=== PATIENT | female | born 1980 | race Caucasian/White ===

== ENCOUNTER 2021-12-05 15:12 | Outpatient (CLI) | payer BC, SELFPAY ==
--- NOTE | ~2021-12-05 | XR_ITS ---
XR_CERV2-3V_CR DATE: 12/05/2021 15:26 INDICATION: Cervical radiculopathy TECHNIQUE: AP, open-mouth, lateral views COMPARISON: None FINDINGS: There is minimal dextroscoliosis of the cervical and upper thoracic spine. There is reversal of cervical curvature which may be due to muscle spasm. The C7-T1 area is optimally evaluated on the lateral view due to superimposed shoulders. More penetra ralf lateral view or swimmer's view is recommended for completeness. There is mild loss of interspace height at C4-5 and C5-6. C1 and C2 are normally aligned and the odontoid process is intact. No fracture or dislocation, locked facet or prevertebral soft tissue swelling. IMPRESSION: Recommend more penetrated lateral view and or swimmer's view for more optimal demonstrati on of C7 Reversal of cervical curvature and minimal dextroscoliosis Mild loss of interspace height at C4-5 and C5-6 Reviewed, dictated and finalized at [facility]. Reviewed, dictated and finalized at location [facility]. IMPRESSION: Recommend more penetrated lateral view and or swimmer's view for mo re optimal demonstration of C7 Reversal of cervical curvature and minimal dextroscoliosis Mild loss of interspace height at C4-5 and C5-6
== END 2021-12-05 15:13 | disposition home or self-care (01) ==
LOC: ANHIMG 15:13
PROVIDERS: PCP Internal Medicine; Visit Provider Nurse Practitioner
DX: M54.12 Radiculopathy, cervical region (principal)
CPT/HCPCS: 72040

== ENCOUNTER 2021-12-06 15:50 | Outpatient (CLI) | payer BC, SELFPAY ==
--- NOTE | ~2021-12-06 | XR_ITS ---
EXAM: XR cervical spine min 6V DATE: 12/06/2021 16:17 HISTORY: M54.12 - Radiculopathy, cervical region . COMPARISON: None available. FINDINGS: Craniocervical association and atlantoaxial joint are normal. No prevertebral soft tissue swelling. Trace anterolisthesis of C2 on 3. 2 mm anterolisthesis of C3 on 4. Mild focal kyphosis cent ered at C4-5. In flexion there is a 4 mm anterolisthesis of C3 on 4, and a 3 mm anterolisthesis of C4 on 5. All listheses reduce in extension. Suboptimal right oblique views. No severe left neural myla inal narrowing or uncovertebral joint hypertrophy. Mild disc space narrowing at C4-5 and C5-6. IMPRESSION: Grade 1 dynamic listheses at C2-3, C3-4, and C4-5. Mild degenerative disc disease in the mid cervical spine. Suboptimal visualization of the right uncovertebral joints and neural foramen. Reviewed, dictated and finalized at [facility]. IMPRESSION: Grade 1 dynamic listheses at C2-3, C3-4, and C4-5. Mild degenerativ e disc disease in the mid cervical spine. Suboptimal visualization of the right uncovertebral joints and neural foramen.
== END 2021-12-06 15:51 | disposition home or self-care (01) ==
PROVIDERS: PCP Internal Medicine; Visit Provider Nurse Practitioner
DX: M54.12 Radiculopathy, cervical region (principal); M50.30 Other cervical disc degeneration, unspecified cervical region
CPT/HCPCS: 72052

== ENCOUNTER 2022-08-08 11:38 | Outpatient (CLI) | payer BC, SELFPAY ==
--- NOTE | ~2022-08-08 | MMUS_ITS ---
EXAMINATION: MM diagnostic dana RT w manuela, US breast RT limited HISTORY: Abnormal 07/18/2022 outside right mammogram TECHNIQUE: Additional 3-D tomosynthesis images of right breast were performed and synthetic 2-D image s were generated. CAD analysis was submitted and interpreted. High resolution upper inner quadrant ri ght breast ultrasound was performed. COMPARISON: 07/18/2022 bilateral screening mammogram FINDINGS: MAMMOGRAPHIC FINDINGS: There is a circumscribed approximately 3.4 x 9 mm opacity in the upper inner quadrant of the right br east. No suspicious mass or architectural distortion, malignant calcification, skin thickening or retractio n is detected. ULTRASOUND: Right breast 2:00 5 cm from nipple: 4.7 x 4.6 x 5.7 mm sonolucency with through transmission posterio r enhancement, consistent with simple cyst 3:00 9 cm from nipple: 1.9 x 2.7 x 5.1 mm simple cyst No suspicious mass or shadowing is detected in the upper inner quadrant of the right breast. IMPRESSION: 1. Benign findings 2. Routine annual mammographic screening is recommended BI-RADS Category 2: Benign finding(s). Reviewed, dictated and finalized at location [facility]. LER TIER IMPRESSION: 1. Benign findings 2. Routine annual mammographic screening is recommended BI-RADS Category 2: Benign finding(s).
== END 2022-08-08 11:39 | disposition home or self-care (01) ==
PROVIDERS: PCP Internal Medicine; Visit Provider Clinical Nurse Specialist
DX: R92.8 Other abnormal and inconclusive findings on diagnostic imaging of breast (principal)
CPT/HCPCS: 76642; 77061; 77065; G0279

== ENCOUNTER 2024-01-22 13:34 | Outpatient (CLI) | payer BC, SELFPAY ==
--- NOTE | ~2024-01-22 | XR_ITS ---
XR_CERV2-3V_CR Ordering provider: TALYA Ramos History: . M54.12 - Radiculopathy, cervical region . Comparison: December 05, 2021 FINDINGS: VERTEBRAL BODIES: Normal height and alignment. No visible fracture or subluxation. The dens is intact . DISK SPACES: Well maintained. PARASPINOUS SOFT TISSUES: No prevertebral soft tissue swelling. IMPRESSION: No acute osseous abnormality cervical spine. Reviewed, dictated and finalized at location [facility].
--- NOTE | ~2024-01-22 | XR_ITS ---
3 VIEWS LUMBAR SPINE Ordering provider: TALYA Ramos History: . M54.50 - Low back pain, unspecified . Comparison: None. FINDINGS: VERTEBRAL BODIES: No visible fracture or subluxation. DISK SPACES: Narrowing of the disc L5-S1. SOFT TISSUES: Normal. IMPRESSION: No acute osseous abnormality lumbar spine. Reviewed, dictated and finalized at location [facility].
== END 2024-01-22 13:35 ==
PROVIDERS: PCP Internal Medicine; Visit Provider Clinical Nurse Specialist
DX: M54.12 Radiculopathy, cervical region (principal); M54.50 Low back pain, unspecified
CPT/HCPCS: 72040; 72100

== ENCOUNTER 2024-01-29 09:51 | Outpatient (CLI) | payer BC, SELFPAY ==
--- NOTE | ~2024-01-29 | MR_ITS ---
MR cervical spine wo con Ordering provider: TALYA Ramos History: 44 years Female with . M54.12 - Radiculopathy, cervical region . Comparison: None. Technique: MRI cervical spine without contrast. FINDINGS: CERVICAL SPINAL CORD/CRANIAL CERVICAL JUNCTION: Normal in signal and caliber. CERVICAL VERTEBRAL BODIES: Normal height and alignment. Normal marrow signal. DISK SPACES: Normal. C2-C3: No stenosis. C3-C4: No stenosis. C4-C5: No stenosis. C5-C6: No stenosis. Mild Diffuse disc bulge. C6-C7: No stenosis. C7-T1: No stenosis. VISUALIZED PARASPINOUS SOFT TISSUES: Normal. IMPRESSION: 1. No acute osseous abnormality. 2. Mild diffuse disc bulge at the level of C5-C6 with no significant intervertebral foraminal narrow ing and root compression. Reviewed, dictated and finalized at location [facility]. IMPRESSION: 1. No acute osseous abnormality. 2. Mild diffuse disc bulge at the level of C5-C6 with no significant intervert ebral foraminal narrowing and root compression.
== END 2024-01-29 09:52 ==
PROVIDERS: PCP Internal Medicine; Visit Provider Clinical Nurse Specialist
DX: M50.322 Other cervical disc degeneration at C5-C6 level (principal)
CPT/HCPCS: 72141